=== PATIENT | female | born 1940 | race Caucasian/White ===

== ENCOUNTER 2024-07-09 10:24 | Outpatient (AMB) | payer MEDICARE, OTHER, SELFPAY ==
[2024-07-09 10:27] VITALS: BP 122/70; PULSE 87; O2SAT 98
--- NOTE | 2024-07-09 10:27 | MHC.OFFVIS ---
Vital Signs 07/09/24 10:27 Weight 149 lb 14.629 oz BP 122/70 Blood Pressure Location Lt brachial Position Sitting Pulse 87 Pulse Source Pulse Oximeter Pulse Oximetry (%) 98 Oxygen Delivery Method Room Air Intake Visit Reasons: Shortness of breath Intake Note: had PFT at [facility] Allergies ciprofloxacin [From Cipro] Allergy (Unknown, Verified 07/09/24 10:32) Rash Medication List - Last Reconciled 07/09/24 by Archana Mann LPN albuterol sulfate 90 mcg/actuation 2 puffs inhalation Q4-6H PRN albuterol-budesonide 90-80 mcg/actuation (Airsupra) 2 inhalations inhalation BID PRN ascorbate calcium (vitamin C) 500 mg PO DAILY calcium citrate-vitamin D3 315 mg-6.25 mcg (250 unit) (Citracal + Vitamin D Maximum) 1 tab PO DAILY hydrochlorothiazide 25 mg PO DAILY lisinopril 40 mg PO DAILY HPI Comments Details: The patient is here for pulmonary evaluation the patient is an 83-year-old woman with worsening respiratory symptoms. Patient states that she is a former smoker she quit many years ago. However she has been noticing the last several years she has had worsening respiratory symptoms. She has had bouts of bronchitis requiring medications. Further questioning the patient was evaluated back in [address] scan the chest. At that time the patient on multiple pulmonary nodules some concerning large nodular densities in the right middle lobe distribution which appeared to be spiculated. She had a positive PET scan and she also had a right lower lobe nodule measuring 5-6 mm in size. She went to [place]. There she had a PET scan was positive in therefore the patient underwent a resection. Is unclear if she underwent a total right middle lobe lobectomy or not. Ultimately it was not cancerous and suspicious for an abscess. Although I do not have those details. In the meantime the patient also had a pulmonary nodule 5 to 6 mm in size in the right lower lobe that has not follow-up. The patient was then evaluated more recently for her breathing symptoms. She had pulmonary function studies at [facility] back in March which we also personally reviewed. It appears that she has a mild obstruction consistent with mild COPD. Slight clear if the patient has any potential triggers that she is also developing significant chronic rhinitis and also sinus pressure. She was seen by primary care doctor given a Z-Roberto for her likely sinusitis although that did not help too much. Will go ahead and start her on doxycycline. The patient also be treated for her underlying asthma COPD overlap syndrome. The patient was given some samples of air supra so therefore did recommend she can start that daily and I will go ahead and start her on long-acting muscarinic antagonist that will provide additional support specially since she did not respond significant to the albuterol. The patient will go ahead and undergo a repeat CT scan to see what the right lower lobe nodule looks like and have her follow-up in 6-8 weeks. Chest any worsening symptoms prior to that she will call for an earlier assessment. [facility] Medical History (Updated 07/09/24 @ 22:00 by Leland Killian MD) Pulmonary nodules Asthma-COPD overlap syndrome Sinusitis Chronic bronchitis Allergies Social History (Updated 07/09/24 @ 10:36 by Arcahna Mann LPN) Patient Tobacco Use Status: Former Tobacco user Tobacco use type: Cigarette Years Smoked: 15 Review of Systems Const Denies fever(s) Eyes Reports no additional complaints ENT Reports nasal congestion, Reports nasal discharge, Reports sinus pain and Reports sinus pressure Card Denies chest pain Resp Reports cough and Reports wheezing GI Reports no additional complaints Musc Reports no additional complaints Skin/Breast Denies rash Dennis/Lymph Reports no additional complaints Aller/Immun Reports wheezing Physical Exam Vital Signs: Last Vital Signs Pulse 87 07/09/24 10:27 BP 122/70 07/09/24 10:27 Pulse Ox 98 07/09/24 10:27 Oxygen Delivery Method Room Air 07/09/24 10:27 Const General: comfortable HEENT Head: Yes normocephalic Neck Neck: Yes supple Chest Chest palpation & inspection: normal inspection of the chest Resp Effort & Inspection: normal respiratory effort Auscultation: diminished lung sounds Cardio Heart sounds: S1 normal heart sound present and S2 normal heart sound present GI Palpation (GI): Soft to palpation Skin General skin exam: no rashes or lesions noted Extrem General: Yes no clubbing, cyanosis or edema Assessment & Plan Assessment & Plan (1) Asthma-COPD overlap syndrome: Code(s): J44.89 - Other specified chronic obstructive pulmonary disease Category: Medical (2) Chronic bronchitis: Code(s): J42 - Unspecified chronic bronchitis Category: Medical Qualifiers: Chronic bronchitis type: mixed simple and mucopurulent Qualified Code(s): J41.8 - Mixed simple and mucopurulent chronic bronchitis (3) Allergies: Code(s): T78.40XA - Allergy, unspecified, initial encounter Category: Medical Qualifiers: Encounter type: initial encounter Qualified Code(s): T78.40XA - Allergy, unspecified, initial encounter (4) Sinusitis: Code(s): J32.9 - Chronic sinusitis, unspecified Category: Medical Qualifiers: Sinusitis location: unspecified location Chronicity: subacute Qualified Code(s): J01.90 - Acute sinusitis, unspecified (5) Pulmonary nodules: Code(s): R91.8 - Other nonspecific abnormal finding of lung field Category: Medical Plan start Spiriva Continue Airsupra samples Bloodwork and allergy testing start fluticasone nasal spray start doxycycline CT chest f/u 2 months Orders: Orders Immunoglobulin E Today J32.9 - Chronic sinusitis, unspecified, J42 - Unspecified chronic bronchitis, T78.40XA - Allergy, unspecified, initial encounter Complete Blood Count Auto Diff Today J32.9 - Chronic sinusitis, unspecified, J42 - Unspecified chronic bronchitis, T78.40XA - Allergy, unspecified, initial encounter Erythrocyte Sedimentation Rate Today J32.9 - Chronic sinusitis, unspecified, J42 - Unspecified chronic bronchitis, T78.40XA - Allergy, unspecified, initial encounter Sjogren's Antibodies Today J32.9 - Chronic sinusitis, unspecified, J42 - Unspecified chronic bronchitis, T78.40XA - Allergy, unspecified, initial encounter CT chest wo IV con Today J32.9 - Chronic sinusitis, unspecified, J42 - Unspecified chronic bronchitis, R91.8 - Other nonspecific abnormal finding of lung field, T78.40XA - Allergy, unspecified, initial encounter Immunoglobulins,IgG IgA IgM Today J32.9 - Chronic sinusitis, unspecified, J42 - Unspecified chronic bronchitis, T78.40XA - Allergy, unspecified, initial encounter Resp Allergy Profile Region I Today J32.9 - Chronic sinusitis, unspecified, J42 - Unspecified chronic bronchitis, R91.1 - Solitary pulmonary nodule, T78.40XA - Allergy, unspecified, initial encounter DORI Reflex Titer and Pattern Today J32.9 - Chronic sinusitis, unspecified, J42 - Unspecified chronic bronchitis, T78.40XA - Allergy, unspecified, initial encounter Medications: New tiotropium bromide 2.5 mcg/actuation (Spiriva Respimat) 2 puffs inhalation DAILY 1 ea 11RF 30 days doxycycline monohydrate 100 mg PO BID 28 tabs 0RF 14 days Coding Level of Care Code New Pt Level 4 (17734) Diagnoses Asthma-COPD overlap syndrome J44.89 Mixed simple and mucopurulent chronic bronchitis J41.8 Chronic bronchitis type: mixed simple and mucopurulent Allergy, initial encounter T78.40XA Encounter type: initial encounter Subacute sinusitis, unspecified location J01.90 Sinusitis location: unspecified location Chronicity: subacute Pulmonary nodules R91.8 Time Spent (min) 40
== END 2024-07-09 11:12 | disposition home or self-care (01) ==
PROVIDERS: PCP Internal Medicine; Referring Provider Internal Medicine; Visit Provider Hospitalist
DX: J44.89 Other specified chronic obstructive pulmonary disease (principal); T78.40XA Allergy, unspecified, initial encounter; J01.90 Acute sinusitis, unspecified; R91.8 Other nonspecific abnormal finding of lung field
CPT/HCPCS: 99204

== ENCOUNTER 2024-07-09 10:24 | Outpatient (REF) | payer MEDICARE, OTHER, SELFPAY ==
[2024-07-09 11:47] LABS: MANUAL DIFF FLAG NO
[2024-07-09 12:08] LABS: Basophils Percent Auto 0.8 % (0-2); Eosinophils Absolute Auto 0.3 X10*3/uL (0.0-0.4); Eosinophils Percent Auto 6.9 % (0-4); Hematocrit 41.2 % (37.0-47.0); Imm Gran Abs Auto 0.01 X10*3/uL (0.00-0.03); Imm Gran Pct Auto 0.2 % (0.0-0.4); Lymphocytes Absolute Auto 1.9 X10*3/uL (1.2-4.9); Lymphocytes Percent Auto 37.6 % (20-40); Mean Corpuscular Hemoglobin 32.7 pg (27.0-33.0); Mean Corpuscular Volume 96.3 fL (80.0-98.0); Mean Platelet Volume 9.6 fL (9.4-12.3); Monocytes Absolute Auto 0.6 X10*3/uL (0.1-1.2); Monocytes Percent Auto 11.6 % (2-11); Neutrophils Absolute Auto 2.1 x10*3/uL (2.0-8.3); Neutrophils Percent Auto 42.9 % (45-73); Platelet Count 280 X10*3/uL (160-400); Red Blood Count 4.28 X10*6/uL (4.20-5.50); Red Cell Distribution Width 12.2 % (11.0-16.0); White Blood Count 4.9 X10*3/uL (4.8-10.8)
[2024-07-09 15:16] LABS: Erythrocyte Sedimentation Rate 19 MM/HR (0-20)
[2024-07-11 13:18] LABS: IgA 241 mg/dL (70-320); IgG 829 mg/dL (600-1540); IgM 109 mg/dL (50-300)
[2024-07-14 10:53] LABS: Antibody to SS-A Antigen <1.0 NEG AI (<1.0 NEG); Antibody to SS-B Antigen <1.0 NEG AI (<1.0 NEG)
[2024-07-14 13:19] LABS: Anti Nuclear Antibody Screen POSITIVE (NEGATIVE); Anti Nuclear Antibody Titer 1:40 titer
[2024-07-17 22:19] LABS: Class Alternaria alternata 0; Class Aspergillus fumigatus 0; Class Bermuda Grass 0; Class Birch 0; Class Cat Dander 0; Class Cladosporium herbarum 0; Class Cockroach 0; Class Common Ragweed 0; Class Cottonwood 0; Class Derm. pterony 0; Class Dermatophagoides farinae 0; Class Dog Dander 0; Class Elm 0; Class Maple Box Elder 0; Class Mountain Cedar 0; Class Mouse Urine Protein 0; Class Mugwort 0; Class Oak 0; Class Penicillium crysogenum 0; Class Rough Pigweed 0; Class Sheep Sorrel 0; Class Sycamore 0; Class Timothy Grass 0; Class Walnut Tree 0; Class White Ash 0; Class White Mulberry 0; D001 IgE D pteronyssinus <0.10 kU/L; D002 - IgE D farinae <0.10 kU/L; E001 - IgE Cat Dander <0.10 kU/L; E005 - IgE Dog Dander <0.10 kU/L; E072-IgE Mouse Urine <0.10 kU/L; G002 IgE Bermuda Grass <0.10 kU/L; G006 - IgE Timothy Grass <0.10 kU/L; I006-IgE Cockroach, German <0.10 kU/L; Immunoglobulin E 112 kU/L (<OR=114); M001 IgE Penicillium chrysogen <0.10 kU/L; M002 - IgE Cladosporium herbar <0.10 kU/L; M003 - IgE Aspergillus fumigat <0.10 kU/L; M006 - IgE Alternaria alternat <0.10 kU/L; T001 IgE Maple/Box Elder <0.10 kU/L; T003 IgE Common Silver Birch <0.10 kU/L; T006 - IgE Cedar, Mountain <0.10 kU/L; T007 - IgE Oak, White <0.10 kU/L; T008 IgE Elm, American <0.10 kU/L; T010 - IgE Walnut <0.10 kU/L; T011 - IgE Maple Leaf Sycamore <0.10 kU/L; T014 - IgE Cottonwood <0.10 kU/L; T015 - IgE Ash, White <0.10 kU/L; T070 - IgE White Mulberry <0.10 kU/L; W001 - IgE Ragweed, Short <0.10 kU/L; W006 - IgE Mugwort <0.10 kU/L; W014 IgE Pigweed, Common <0.10 kU/L; W018 IgE Sheep Sorrel <0.10 kU/L
== END 2024-07-09 10:25 | disposition home or self-care (01) ==
LOC: HO.LAB 10:24
PROVIDERS: PCP Internal Medicine; Referring Provider Internal Medicine; Visit Provider Hospitalist
DX: J32.9 Chronic sinusitis, unspecified (principal); R91.1 Solitary pulmonary nodule; T78.40XA Allergy, unspecified, initial encounter; J41.8 Mixed simple and mucopurulent chronic bronchitis; R91.8 Other nonspecific abnormal finding of lung field
CPT/HCPCS: 36415; 82784; 82785; 85025; 85652; 86003; 86038; 86039; 86235; 99202

== ENCOUNTER 2024-08-14 07:18 | Outpatient (REF) | payer MEDICARE, OTHER, SELFPAY ==
--- NOTE | ~2024-08-14 | CT_ITS ---
CLINICAL HISTORY: R91.8 - Other nonspecific abnormal finding of lung field CT chest without contrast Comparison: None Findings: The heart is normal size. There is aortic and coronary arterial calcification. The visualized thyroid and mediastinum are otherwise unremarkable. There is right middle and lower lobe scarring.. The visualized upper abdomen is unremarkable. The bones are intact. IMPRESSION: 1. Unremarkable chest CT. This document has been electronically signed by: Godfrey Owens MD on 08/15/2024 08:07:13
== END 2024-08-14 07:19 | disposition home or self-care (01) ==
LOC: HO.CT 07:18
PROVIDERS: PCP Internal Medicine; Visit Provider Hospitalist
DX: R91.8 Other nonspecific abnormal finding of lung field (principal); J32.9 Chronic sinusitis, unspecified; J42 Unspecified chronic bronchitis; T78.40XA Allergy, unspecified, initial encounter
CPT/HCPCS: 71250

== ENCOUNTER → 2024-08-14 07:20 | Outpatient (BNV) | payer MEDICARE, OTHER, SELFPAY | PROVIDERS: PCP Internal Medicine; Visit Provider Specialist | DX: R91.8 Other nonspecific abnormal finding of lung field (principal) | CPT/HCPCS: 71250 ==

== ENCOUNTER 2024-09-15 10:31 | Outpatient (AMB) | payer MEDICARE, OTHER, SELFPAY ==
--- NOTE | 2024-09-15 10:39 | MHC.OFFVIS ---
Vital Signs 09/15/24 10:41 Height 4 ft 11.5 in Weight 148 lb 12.992 oz BMI 29.6 BP 136/78 Blood Pressure Location Rt brachial Position Sitting Pulse 89 Pulse Source Pulse Oximeter Pulse Oximetry (%) 98 Oxygen Delivery Method Room Air Intake Visit Reasons: Shortness of breath Allergies ciprofloxacin [From Cipro] Allergy (Unknown, Verified 09/15/24 10:45) Rash HPI Comments Details: The patient is an 83-year-old woman with worsening respiratory symptoms. Patient states that she is a former smoker she quit many years ago. However she has been noticing the last several years she has had worsening respiratory symptoms. She has had bouts of bronchitis requiring medications. Further questioning the patient was evaluated back in [address] scan the chest. At that time the patient on multiple pulmonary nodules some concerning large nodular densities in the right middle lobe distribution which appeared to be spiculated. She had a positive PET scan and she also had a right lower lobe nodule measuring 5-6 mm in size. She went to [place]. There she had a PET scan was positive in therefore the patient underwent a resection. Is unclear if she underwent a total right middle lobe lobectomy or not. Ultimately it was not cancerous and suspicious for an abscess. Although I do not have those details. In the meantime the patient also had a pulmonary nodule 5 to 6 mm in size in the right lower lobe that has not follow-up. The patient was then evaluated more recently for her breathing symptoms. She had pulmonary function studies at [facility] back in March which we also personally reviewed. It appears that she has a mild obstruction consistent with mild COPD. Slight clear if the patient has any potential triggers that she is also developing significant chronic rhinitis and also sinus pressure. She was seen by primary care doctor given a Z-Roberto for her likely sinusitis although that did not help too much. Will go ahead and start her on doxycycline. The patient also be treated for her underlying asthma COPD overlap syndrome. The patient was given some samples of air supra so therefore did recommend she can start that daily and I will go ahead and start her on long-acting muscarinic antagonist that will provide additional support specially since she did not respond significant to the albuterol. The patient will go ahead and undergo a repeat CT scan to see what the right lower lobe nodule looks like and have her follow-up in 6-8 weeks. Chest any worsening symptoms prior to that she will call for an earlier assessment. 09/15/2024 the patient is here for pulmonary follow-up visit. Since we last spoke she has had 2 episodes of breathing exacerbation. She required prednisone twice. The prednisone did help her. She also had some antibiotics. When she does take the prednisone her symptoms do improve significantly. As far as her imaging studies he did have a CT scan of the chest that I personally reviewed demonstrating some postoperative changes evidence of bronchitis and nodular densities. In addition to that she had a recent chest x-ray because of her recent illness that demonstrated by bibasilar atelectasis. The patient also had blood work her allergy testing was also negative although her eosinophils were slightly elevated at 300. In addition to the IgE level within high normal range. The patient likely has some allergies but not significant. Therefore, will go ahead and start her on a small dose of Daliresp for chronic bronchitis. In addition to that will optimize her respiratory inhalers by switching her over to Trelegy 200. Did teach how to use it. Will follow-up in 3-4 months and will see her progress. If she has any difficulty with breathing she will call the office for further recommendations. [facility] Medical History (Updated 07/09/24 @ 22:00 by Leland Killian MD) Pulmonary nodules Asthma-COPD overlap syndrome Sinusitis Chronic bronchitis Allergies Social History Patient Tobacco Use Status: Former Tobacco user Tobacco use type: Cigarette Years Smoked: 15 Review of Systems Const Denies fever(s) Eyes Reports no additional complaints ENT Reports nasal congestion, Reports nasal discharge, Reports sinus pain and Reports sinus pressure Card Denies chest pain Resp Reports cough and Reports wheezing GI Reports no additional complaints Musc Reports no additional complaints Skin/Breast Denies rash Dennis/Lymph Reports no additional complaints Aller/Immun Reports wheezing Physical Exam Vital Signs: Last Vital Signs Pulse 89 09/15/24 10:41 BP 136/78 09/15/24 10:41 Pulse Ox 98 09/15/24 10:41 Oxygen Delivery Method Room Air 09/15/24 10:41 BMI result Body Mass Index 29.6 Const General: comfortable HEENT Head: Yes normocephalic Neck Neck: Yes supple Chest Chest palpation & inspection: normal inspection of the chest Resp Effort & Inspection: normal respiratory effort Auscultation: diminished lung sounds Cardio Heart sounds: S1 normal heart sound present and S2 normal heart sound present GI Palpation (GI): Soft to palpation Skin General skin exam: no rashes or lesions noted Extrem General: Yes no clubbing, cyanosis or edema Assessment & Plan Assessment & Plan (1) Asthma-COPD overlap syndrome: Code(s): J44.89 - Other specified chronic obstructive pulmonary disease Category: Medical (2) Chronic bronchitis: Code(s): J42 - Unspecified chronic bronchitis Category: Medical Qualifiers: Chronic bronchitis type: mixed simple and mucopurulent Qualified Code(s): J41.8 - Mixed simple and mucopurulent chronic bronchitis (3) Allergies: Code(s): T78.40XA - Allergy, unspecified, initial encounter Category: Medical Qualifiers: Encounter type: initial encounter Qualified Code(s): T78.40XA - Allergy, unspecified, initial encounter (4) Sinusitis: Code(s): J32.9 - Chronic sinusitis, unspecified Category: Medical Qualifiers: Chronicity: subacute Sinusitis location: unspecified location Qualified Code(s): J01.90 - Acute sinusitis, unspecified (5) Pulmonary nodules: Code(s): R91.8 - Other nonspecific abnormal finding of lung field Category: Medical Plan stop Spiriva stop Airsupra samples start Trelegy 200mcg daily start Daliresp 250mcg-->500mcg fluticasone nasal spray f/u 3-4 months Medications: New msxtmorpuzf-dtlcxutbu-aitqwtzz 200-62.5-25 mcg (Trelegy Ellipta) 1 inh inhalation DAILY 60 ea 12RF 30 days roflumilast (Daliresp) 250 mcg PO DAILY 30 tabs 11RF 30 days J44.9 - Chronic obstructive pulmonary disease, unspecified Coding Level of Care Code Est Pt Level 4 (02137) Diagnoses Asthma-COPD overlap syndrome J44.89 Mixed simple and mucopurulent chronic bronchitis J41.8 Chronic bronchitis type: mixed simple and mucopurulent Allergy, initial encounter T78.40XA Encounter type: initial encounter Subacute sinusitis, unspecified location J01.90 Chronicity: subacute Sinusitis location: unspecified location Pulmonary nodules R91.8 Time Spent (min) 17
[2024-09-15 10:41] VITALS: BP 136/78; PULSE 89; O2SAT 98; BMI 29.6
== END 2024-09-15 11:14 | disposition home or self-care (01) ==
PROVIDERS: PCP Internal Medicine; Visit Provider Hospitalist
DX: J41.8 Mixed simple and mucopurulent chronic bronchitis (principal); R91.8 Other nonspecific abnormal finding of lung field
CPT/HCPCS: 99214

== ENCOUNTER → 2024-09-15 10:31 | Outpatient (BNVA) | payer MEDICARE, OTHER, SELFPAY | PROVIDERS: PCP Internal Medicine; Visit Provider Hospitalist | DX: J44.89 Other specified chronic obstructive pulmonary disease (principal); R91.8 Other nonspecific abnormal finding of lung field; T78.40XA Allergy, unspecified, initial encounter; J41.8 Mixed simple and mucopurulent chronic bronchitis; J01.90 Acute sinusitis, unspecified | CPT/HCPCS: 99212 ==

== ENCOUNTER 2024-12-29 09:40 | Outpatient (AMB) | payer MEDICARE, OTHER, SELFPAY ==
[2024-12-29 09:50] VITALS: BP 138/68; PULSE 82; O2SAT 98; BMI 29.1
--- NOTE | 2024-12-29 09:50 | A.OFFVIS_ITS ---
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 Patient states that she is a former smoker she quit many years ago. However she has been noticing the last several years she has had worsening respiratory symptoms. She has had bouts of bronchitis requiring medications. Further questioning the patient was evaluated back in [address] scan the chest. At that time the patient on multiple pulmonary nodules some concerning large nodular densities in the right middle lobe distribution which appeared to be s piculated. She had a positive PET scan and she also had a right lower lobe nodule measuring 5-6 mm in size. She went to [place]. There she had a PET scan was positive in therefore the patient underwent a resection. Is unclear if she underwent a total right middle lobe lobectomy or not. Ultimately it was not cancerous and suspicious for an abscess. Although I do not have those details. In the meantime the patient also had a pulmonary nodule 5 to 6 mm in size in the right lower lobe that has not follow-up. The patient was then evaluated more recently for her breathing symptoms. She had pulmonary function studies at [facility] back in March which we also personally reviewed. It appears that she has a mild obstruction consistent with mild COPD. Slight clear if the patient has any potential triggers that she is also developing significant chronic rhinitis and also sinus pressure. She was seen by primary care doctor given a Z-Roberto for her likely sinusitis although that did not help too much. Will go ahead and start her on doxycycline. The patient also be treated for her underlying asthma COPD overlap syndrome. The patient was given some samples of air supra so therefore did recommend she can start that daily and I will go ahead and start her on long-acting muscarinic antagonist that will provide additional support specially since she did not respond significant to the albuterol. The patient will go ahead and undergo a repeat CT scan to see what the right lower lobe nodule looks like and have her follow-up in 6-8 weeks. Chest any worsening symptoms prior to that she will call for an earlier assessment. 09/15/2024 the patient is here for pulmonary follow-up visit. Since we last spoke she has had 2 episodes of breathing exacerbation. She required prednisone twice. The prednisone did help her. She also had some antibiotics. When she does take the prednisone her symptoms do improve significantly. As far as her imaging studies he did have a CT scan of the chest that I personally reviewed demonstrating some postoperative changes evidence of bronchitis and nodular densities. In addition to that she had a recent chest x-ray because of her recent illness that demonstrated by bibasilar atelectasis. The patient also had blood work her allergy testing was also negative although her eosinophils were slightly elevated at 300. In addition to the IgE level within high normal range. The patient likely has some allergies but not significant. Therefore, will go ahead and start her on a small dose of Daliresp for chronic bronchitis. In addition to that will optimize her respiratory inhalers by switching her over to Trelegy 200. Did teach how to use it. Will follow-up in 3-4 months and will see her progress. If she has any difficulty with breathing she will call the office for further recommendations. 12/29/2024 the patient is here for a pulmonary follow-up visit. Overall the patient has been doing well from a respiratory status. She is tolerating the Trelegy inhaler once a day. She is also using the Daliresp. She does well at 250 mcg dose. She is concerned about going up on the dose because of the side effect profile therefore will keep her on that dose specially since is working for her. We did look at her CT scan that she had back in July 2024. No evidence of any nodules to follow which is reassuring. Subsequently after that she went to [facility] and she was sick and she was given antibiotics. Her x- ray at that time showed some atelectasis. She is feeling well right now. Will continue with the current respiratory regimen will follow-up in early spring. If she has any issues prior to that she will call for an earlier assessment. [facility] Medical History (Updated 12/29/24 @ 10:08 by Leland Killian MD) Pulmonary nodules Asthma-COPD overlap syndrome Sinusitis Chronic bronchitis Allergies Social History Patient Tobacco Use Status: Former Tobacco user Tobacco use type: Cigarette Years Smoked: 15 Review of Systems Const Denies fever(s) Eyes Reports no additional complaints ENT Reports nasal congestion and Reports nasal discharge Card Denies chest pain Resp Reports cough and Denies wheezing GI Reports no additional complaints Musc Reports no additional complaints Skin/Breast Denies rash Dennis/Lymph Reports no additional complaints Aller/Immun Denies wheezing Physical Exam Vital Signs: Last Vital Signs Pulse 82 12/29/24 09:50 BP 138/68 12/29/24 09:50 Pulse Ox 98 12/29/24 09:50 Oxygen Delivery Method Room Air 12/29/24 09:50 BMI result Body Mass Index 29.1 Const General: comfortable HEENT Head: Yes normocephalic Neck Neck: Yes supple Chest Chest palpation & inspection: normal inspection of the chest Resp Effort & Inspection: normal respiratory effort Auscultation: diminished lung sounds Cardio Heart sounds: S1 normal heart sound present and S2 normal heart sound present GI Palpation (GI): Soft to palpation Skin General skin exam: no rashes or lesions noted Extrem General: Yes no clubbing, cyanosis or edema Assessment & Plan Assessment & Plan (1) Asthma-COPD overlap syndrome: Code(s): J44.89 - Other specified chronic obstructive pulmonary disease Category: Medical (2) Chronic bronchitis: Code(s): J42 - Unspecified chronic bronchitis Category: Medical Qualifiers: Chronic bronchitis type: mixed simple and mucopurulent Qualified Code(s): J41.8 - Mixed simple and mucopurulent chronic bronchitis (3) Allergies: Code(s): T78.40XA - Allergy, unspecified, initial encounter Category: Medical Qualifiers: Encounter type: initial encounter Qualified Code(s): T78.40XA - Allergy, unspecified, initial encounter (4) Pulmonary nodules: Comment: LAst CT chest 07/2024 without nodules Code(s): R91.8 - Other nonspecific abnormal finding of lung field Category: Medical Plan continue Trelegy 200mcg daily continue Daliresp 250mcg fluticasone nasal spray f/u 8-10 months Coding Level of Care Code Est Pt Level 4 (84628) Diagnoses Asthma-COPD overlap syndrome J44.89 Mixed simple and mucopurulent chronic bronchitis J41.8 Chronic bronchitis type: mixed simple and mucopurulent Allergy, initial encounter T78.40XA Encounter type: initial encounter Pulmonary nodules R91.8 Time Spent (min) 16
== END 2024-12-29 10:21 | disposition home or self-care (01) ==
LOC: HO.HPS 09:41
PROVIDERS: PCP Internal Medicine; Visit Provider Hospitalist
DX: J44.89 Other specified chronic obstructive pulmonary disease (principal); J41.8 Mixed simple and mucopurulent chronic bronchitis; T78.40XA Allergy, unspecified, initial encounter; R91.8 Other nonspecific abnormal finding of lung field; J01.90 Acute sinusitis, unspecified
CPT/HCPCS: 99214

== ENCOUNTER → 2024-12-29 09:40 | Outpatient (BNVA) | payer MEDICARE, OTHER, SELFPAY | PROVIDERS: PCP Internal Medicine; Visit Provider Hospitalist | DX: J44.89 Other specified chronic obstructive pulmonary disease (principal); J41.8 Mixed simple and mucopurulent chronic bronchitis; R91.8 Other nonspecific abnormal finding of lung field; T78.40XD Allergy, unspecified, subsequent encounter | CPT/HCPCS: 99212 ==